=== PATIENT | male | born 1985 | race Caucasian/White ===

== ENCOUNTER 2017-06-20 21:12 | Emergency (ER) | payer MEDICAID ==
[~2017-06-20] VITALS: Ht 172.7 cm; Wt 72.7 kg
[2017-06-20] MEDS ORDERED: LIDOCAINE HCL 1% 20ML VIAL (Pyxis) INJ MC ONE (22:45)
[2017-06-20] MEDS ORDERED: BACITRACIN ZINC OINT UDPKT TOP ONE (22:45)
[2017-06-20] MEDS ORDERED: LIDOCAINE HCL/PF 1% 10 MG/ML 5ML VIAL IJ SCH (22:48)
[2017-06-21 02:15] VITALS: BP 105/68
== END 2017-06-21 02:15 | disposition home or self-care (01) ==
LOC: ER 21:12
DX: S61.011A Laceration without foreign body of right thumb without damage to nail, initial encounter (principal); W17.89XA Other fall from one level to another, initial encounter; Y93.51 Activity, roller skating (inline) and skateboarding; Y92.89 Other specified places as the place of occurrence of the external cause; V00.131A Fall from skateboard, initial encounter
CPT/HCPCS: 12002; 73130; 99284; A4217; J3490; Z7610

== ENCOUNTER 2017-06-28 09:39 | Emergency (ER) | payer MEDICAID ==
[~2017-06-28] VITALS: Ht 170.2 cm; Wt 75.0 kg
[2017-06-28 09:48] VITALS: BP 123/69
== END 2017-06-28 14:43 | disposition home or self-care (01) ==
LOC: ER 14:07
DX: Z48.00 Encounter for change or removal of nonsurgical wound dressing (principal); X58.XXXD Exposure to other specified factors, subsequent encounter
CPT/HCPCS: 99283

== ENCOUNTER 2017-09-08 18:42 | Emergency (ER) | payer MEDICAID ==
[~2017-09-08] VITALS: Ht 167.6 cm; Wt 64.0 kg
[2017-09-08 20:17] LABS: HEMATOCRIT. 42.3 % (42.0-52.0); HEMOGLOBIN. 14.5 g/dL (14.0-18.0); MEAN CORPUSCULAR HEMOGLOBIN 31.2 pg (28.0-32.0); MEAN CORPUSCULAR VOLUME 91.1 fL (80.0-94.0); MEAN PLATELET VOLUME 9.5 fl (7.4-10.4); PLATELET 183 x1000/uL (130-400); RED BLOOD CELL COUNT 4.64 mill/uL (4.7-6.1)
[2017-09-08 20:23] LABS: PROTHROMBIN TIME 10.2 sec (9.4-11.6)
[2017-09-08 20:30] LABS: CHLORIDE 104 mEq/L (98-107)
[2017-09-08 20:55] LABS: PLATELET ESTIMATE NORMAL
[2017-09-08 21:38] LABS: CLARITY URINE CLEAR (CLEAR); COLOR URINE DARK YELLOW (YELLOW); KETONES URINE 1+ (NEGATIVE); LEUKOCYTE ESTERASE URINE NEGATIVE (NEGATIVE); NITRITE URINE NEGATIVE (NEGATIVE); OCCULT BLOOD URINE NEGATIVE (NEGATIVE); PH URINE 5.5 (4.5-8.0); PROTEIN URINE TRACE (NEGATIVE); SPECIFIC GRAVITY URINE 1.035 (1.005-1.030)
[2017-09-08] MEDS ORDERED: LIDOCAINE HCL 1%/EPI 1:200,000 30 ML VIAL MC ONE (21:45)
[2017-09-08] MEDS ORDERED: HYDROCODONE/ACETAMINOPHEN 5/325MG TABLET PO ONE (21:45)
[2017-09-08] MEDS ORDERED: BACITRACIN ZINC OINT UDPKT TOP ONE (21:45)
[2017-09-08] MEDS ORDERED: SULFAMETHOXAZOLE/TRIMETHOPRIM 800/160MG TABLET PO ONE (21:45)
[2017-09-08] MEDS ORDERED: IBUPROFEN 600MG TABLET PO ONE (21:45)
[2017-09-08] MEDS ORDERED: CEPHALEXIN 500MG CAPSULE PO ONE (21:45)
[2017-09-08 21:51] LABS: *AMPHETAMINES SCREEN URINE NEGATIVE (NEGATIVE); *BARBITURATES SCREEN URINE NEGATIVE (NEGATIVE); *BENZODIAZEPINES SCREEN URINE NEGATIVE (NEGATIVE); *COCAINE SCREEN URINE NEGATIVE (NEGATIVE); METHADONE URINE SCREEN NEGATIVE (NEGATIVE)
[2017-09-08 21:52] LABS: CANNABINOID URINE SCREEN PRESUMTIVE POSITIVE (NEGATIVE); OPIATES URINE SCREEN NEGATIVE (NEGATIVE); PHENCYCLIDINE URINE SCREEN NEGATIVE (NEGATIVE)
[2017-09-08 23:33] VITALS: BP 137/91
== END 2017-09-08 23:57 | disposition home or self-care (01) ==
LOC: ER 18:42
DX: L02.31 Cutaneous abscess of buttock (principal); R50.81 Fever presenting with conditions classified elsewhere; F12.10 Cannabis abuse, uncomplicated; R19.7 Diarrhea, unspecified; R79.1 Abnormal coagulation profile; Z79.899 Other long term (current) drug therapy
CPT/HCPCS: 10060; 36415; 80053; 80305; 81003; 83605; 85025; 85610; 87040; 87086; 99284; Z7610

== ENCOUNTER 2017-09-09 19:39 | Emergency (ER) | payer MEDICAID ==
[~2017-09-09] VITALS: Ht 167.6 cm; Wt 66.0 kg
[2017-09-09 21:30] VITALS: BP 128/85
== END 2017-09-09 21:36 | disposition home or self-care (01) ==
LOC: ER 19:39
DX: L02.212 Cutaneous abscess of back [any part, except buttock and flank] (principal); R03.0 Elevated blood-pressure reading, without diagnosis of hypertension
CPT/HCPCS: 99283

== ENCOUNTER 2017-09-11 18:11 | Emergency (ER) | payer MEDICAID ==
[~2017-09-11] VITALS: Ht 167.6 cm; Wt 66.0 kg
[2017-09-11 18:48] VITALS: BP 137/79
== END 2017-09-11 19:40 | disposition left against medical advice (07) ==
LOC: ER 19:36
DX: Z48.01 Encounter for change or removal of surgical wound dressing (principal)
CPT/HCPCS: 99281

== ENCOUNTER 2017-10-11 16:42 | Emergency (ER) | payer MEDICAID ==
[~2017-10-11] VITALS: Ht 167.6 cm; Wt 64.0 kg
[2017-10-11] MEDS ORDERED: IBUPROFEN 600MG TABLET PO STA (22:24)
[2017-10-11] MEDS ORDERED: LIDOCAINE HCL 1% 20ML VIAL (Pyxis) INJ MC ONE (22:30)
[2017-10-11] MEDS ORDERED: BACITRACIN ZINC OINT UDPKT TOP ONE (22:30)
[2017-10-11 23:00] VITALS: BP 136/74
[2017-10-12] MEDS ORDERED: LIDOCAINE HCL/PF 1% 10 MG/ML 5ML VIAL IJ SCH (00:05)
[2017-10-12 00:30] LABS: CLARITY URINE CLEAR (CLEAR); COLOR URINE YELLOW (YELLOW); KETONES URINE NEGATIVE (NEGATIVE); LEUKOCYTE ESTERASE URINE NEGATIVE (NEGATIVE); NITRITE URINE NEGATIVE (NEGATIVE); OCCULT BLOOD URINE NEGATIVE (NEGATIVE); PH URINE 5.5 (4.5-8.0); PROTEIN URINE NEGATIVE (NEGATIVE); SPECIFIC GRAVITY URINE 1.024 (1.005-1.030)
== END 2017-10-12 01:34 | disposition home or self-care (01) ==
LOC: ER 16:42
DX: L02.214 Cutaneous abscess of groin (principal); L30.4 Erythema intertrigo; B35.1 Tinea unguium; F17.200 Nicotine dependence, unspecified, uncomplicated
CPT/HCPCS: 10060; 81003; 99283; J3490; Z7610

== ENCOUNTER 2017-10-13 17:37 | Emergency (ER) | payer MEDICAID ==
[~2017-10-13] VITALS: Ht 160 cm; Wt 64.0 kg
[2017-10-13 18:00] VITALS: BP 145/81
== END 2017-10-14 01:23 | disposition left against medical advice (07) ==
LOC: ER 10-14 01:23
DX: Z48.00 Encounter for change or removal of nonsurgical wound dressing (principal)
CPT/HCPCS: 99281